=== PATIENT | female | born 1995 | race Caucasian/White ===

== ENCOUNTER 2021-04-10 10:28 | Outpatient (CLI) | payer BC | END 2021-04-10 10:29 | disposition home or self-care (01) | LOC: CSHLAB 10:28 | PROVIDERS: ATTEND Obstetrics & Gynecology | DX: Z20.822 Contact with and (suspected) exposure to COVID-19 (principal) | CPT/HCPCS: 85027; 86850; 86900; 86901; U0003; U0005 ==

== ENCOUNTER 2021-04-11 09:58 | Day surgery (SDC) | payer BC ==
[2021-04-10 11:11] VITALS: BMI 30.2
[2021-04-10 12:11] LABS: Hemoglobin 12.4 g/dL (12.0-15.5); Mean Corpuscular HGB CONC 33.3 g/dL (32.0-36.0); Mean Corpuscular Hemoglobin 31.4 pg (27.0-33.0); Mean Corpuscular Volume 94.2 fl (81.6-98.3); Mean Platelet Volume 10.6 fl (7.4-10.4); Platelet Count 263 10x3/uL (150-450); RBC Distribution Width 11.7 % (11.5-14.5); Red Blood Cell (RBC) Count 3.95 10x6/uL (3.90-5.03); White Blood Cell (WBC) Count 10.5 10x3/uL (3.5-10.5)
[2021-04-10 21:44] LABS: SARS-CoV-2 PCR by NAA Not Detected (NotDetected)
[2021-04-11] MEDS ORDERED: Lidocaine 1% MPF 2 ML VIAL ONE (10:23)
[2021-04-11] MEDS ORDERED: CeleCOXIB 100 MG CAP ONE ×2 (10:23→10:34)
[2021-04-11] MEDS ORDERED: Lidocaine 1% w/Epinephrine 1:100K 30 ML VIAL ONE (10:53)
[2021-04-11] MEDS ORDERED: PROPOFOL 20 ML ONE (11:16)
[2021-04-11] MEDS ORDERED: Fentanyl 100 MCG/2 ML VIAL ONE (11:17)
[2021-04-11] MEDS ORDERED: Lidocaine 1% PF 5 ML VIAL ONE (11:17)
[2021-04-11] MEDS ORDERED: ceFAZolin 2 GM/Dextrose 50 ML IVPB ONE (11:52)
[2021-04-11] MEDS ORDERED: Ondansetron PF 4 MG/2 ML Vial ONE (12:15)
[2021-04-11] MEDS ORDERED: Dexamethasone 20 MG/5 ML VIAL ONE (12:15)
[2021-04-11] MEDS ORDERED: PHENYLEPHRINE-NS 100 MCG/ML 10 ML SYRINGE ONE (12:33)
[2021-04-11] MEDS ORDERED: Ketorolac Tromethamine 30 MG/ML VIAL ONE (12:58)
== END 2021-04-11 14:40 | disposition home or self-care (01) ==
LOC: CSHSDC 09:58
PROVIDERS: ATTEND Obstetrics & Gynecology
PROC: 10D18ZZ Extraction of Products of Conception, Retained, Via Natural or Artificial Opening Endoscopic (ICD-10-PCS; principal; 2021-04-11)
DX: O03.1 Delayed or excessive hemorrhage following incomplete spontaneous abortion (principal); Z20.822 Contact with and (suspected) exposure to COVID-19
CPT/HCPCS: 36415; 85027; 86850; 86900; 86901; 88305; J0690; J1100; J1885; J2405; J2704; J3010; U0003; U0005

== ENCOUNTER 2021-12-27 09:47 | Outpatient (CLI) | payer BC | END 2021-12-27 09:48 | disposition home or self-care (01) | LOC: CSHRAD 09:47 | PROVIDERS: ATTEND Student in an Organized Health Care Education/Training Program | DX: N97.9 Female infertility, unspecified (principal) | CPT/HCPCS: 58340; 74740 ==